=== PATIENT | male | born 1940 | race Caucasian/White ===

== ENCOUNTER 2017-02-25 08:15 | Emergency (ER) | payer MEDICARE ==
[2017-02-25 09:32] LABS: Hematocrit 42.5 % (42.0-52.0)
[2017-02-25] MEDS ORDERED: Adacel (T-DAP) 0.5 ML VIAL ONE (09:34)
[2017-02-25 09:39] LABS: Prothrombin Time 13.1 SEC (12.0-14.7)
== END 2017-02-25 09:42 | disposition home or self-care (01) ==
LOC: ERS 08:15
DX: S91.201A Unspecified open wound of right great toe with damage to nail, initial encounter (principal); I25.2 Old myocardial infarction; E78.5 Hyperlipidemia, unspecified; I10 Essential (primary) hypertension; Z79.82 Long term (current) use of aspirin; Z79.899 Other long term (current) drug therapy; W20.8XXA Other cause of strike by thrown, projected or falling object, initial encounter
CPT/HCPCS: 36415; 85014; 85018; 85610; 90471; 90715; J2997

== ENCOUNTER 2019-01-01 10:11 | Outpatient (CLI) | payer MEDICARE ==
--- NOTE | 2019-01-01 10:47 | ULT ---
BILATERAL CAROTID DUPLEX ULTRASOUND: HISTORY: TIA TECHNIQUE: Grayscale, color-flow and spectral Doppler ultrasound imaging of the extracranial carotid artery syst ems was performed bilaterally. FINDINGS: Mild plaque formation. The peak systolic velocity in the right ICA measures 68 cm/s. The peak systolic velocity in the left ICA measures 68 cm/s. Vertebral flow: antegrade, bilaterally. IMPRESSION: No hemodynamically significant stenosis of Both ICAs.
--- NOTE | 2019-01-01 12:13 | CT ---
CT OF THE BRAIN WITHOUT CONTRAST: Date: 01/01/19 COMPARISON: None. HISTORY: TIA. TECHNIQUE: Multiple contiguous axial images were obtained in a CT of the brain without contrast. FINDINGS: The brain is normal in morphology and attenuation without focal lesions or confluent areas of infarct ion. There is no evidence of hydrocephalus, intracranial hemorrhage, or extra-axial fluid collection. The calvarium and overlying soft tissues are unremarkable. The visualized paranasal sinuses and masto id air cells are well aerated. IMPRESSION: No evidence of acute intracranial abnormality. POS: CET
== END 2019-01-01 10:12 | disposition home or self-care (01) ==
LOC: CT 10:11
PROVIDERS: ATTEND Internal Medicine
DX: G45.9 Transient cerebral ischemic attack, unspecified (principal); R51 Headache; I25.10 Atherosclerotic heart disease of native coronary artery without angina pectoris; R79.89 Other specified abnormal findings of blood chemistry; E87.1 Hypo-osmolality and hyponatremia; Z79.899 Other long term (current) drug therapy
CPT/HCPCS: 70450; 80053; 85025; 86140; 93880

== ENCOUNTER 2019-06-09 08:47 | Observation (INO) | payer MEDICARE ==
[2019-06-09] MEDS ORDERED: Aspirin Chewable 81 MG TAB ONE (09:07)
--- NOTE | 2019-06-09 09:27 | RAD ---
XR Chest 1 View Portable History: Chest pain Comparison: Radiograph 2016 Findings: The lungs are clear. No pneumothorax. No effusion. Cardiac silhouette and mediastinal conto urs are within normal limits. No acute osseous abnormality. Impression: No acute intrathoracic abnormality.
[2019-06-09] MEDS ORDERED: Nitroglycerin 2% Ointment 1 INCH/1 GM Packet ONE (09:29)
[2019-06-09 09:36] LABS: #Eosinphils 0.1 thou/uL (0.0-0.7); #Lymphocytes 1.2 thou/uL (1.20-3.40); #Monocytes 0.5 thou/uL (0.11-0.59); #Neutrophils 3.4 thou/uL (1.40-6.50); %Basophils 0.7 % (0.0-1.0); %Eosinophils 1.8 % (0.0-10.0); %Lymphocytes 23.6 % (21.0-51.0); %Monocytes 9.7 % (0.0-10.0); %Neutrophils 64.2 % (42.0-75.0); Hemoglobin 14.6 g/dL (14.0-18.0); Mean Corpuscular HGB CONC 32.6 g/dL (32.0-36.0); Mean Corpuscular Hemoglobin 28.4 pg (27.0-31.0); Mean Corpuscular Volume 87.3 fL (78.0-98.0); Mean Platelet Volume 6.6 fL (7.4-10.4); Platelet Count 165 thou/uL (130-400); RBC Distribution Width 11.3 % (11.5-14.5); Red Blood Cell (RBC) Count 5.15 mill/uL (4.70-6.10); White Blood Cell (WBC) Count 5.3 thou/uL (4.8-10.8)
[2019-06-09 09:44] LABS: Prothrombin Time 12.9 SEC (12.0-14.7)
[2019-06-09] MEDS ORDERED: Nitroglycerin 0.4 MG TAB 1 EACH ONE (10:04)
[2019-06-09 10:05] LABS: ALT (SGPT) 14 U/L (8-55); AST (SGOT) 18 U/L (5-34); Albumin 4.3 g/dL (3.4-4.8); Alkaline Phosphatase 76 U/L (40-110); Anion Gap 14 mmol/L (10-20); BUN (Urea Nitrogen) 15 mg/dL (8.4-25.7); Bilirubin, Total 0.7 mg/dL (0.2-1.2); Calc. Creatinine Clearance 0 mL/min (70-130); Calcium 9.3 mg/dL (7.8-10.44); Carbon Dioxide 25 mmol/L (23-31); Chloride 100 mmol/L (98-107); Estimated GFR-MDRD 65; Globulin 2.4 g/dL (2.4-3.5); Glucose 110 mg/dL (83-110); Potassium 4.3 mmol/L (3.5-5.1); Protein, Total 6.7 g/dL (5.8-8.1); Sodium 135 mmol/L (136-145)
[2019-06-09] MEDS ORDERED: Enoxaparin Sodium 80 MG/0.8 ML SYRINGE ONE (10:30)
[2019-06-09 10:39] LABS: Bacteria/HPF None Seen HPF (None Seen); Bilirubin Negative (Negative); Blood, Urine Trace (Negative); Clarity Clear (Clear); Glucose, Urine (Dipstick) Normal (Negative); Leukocyte Negative Leu/uL (Negative); Nitrite Negative (Negative); Protein, Urine (Dipstick) Negative (Neg-Trace); RBC/HPF 0-3 HPF (0-3); Squamous Epithelial None Seen HPF (0-3); Urobilinogen Normal mg/dL (Less than 2); WBC/HPF 0-3 HPF (0-3)
[2019-06-09] MEDS ORDERED: Enoxaparin Sodium 80 MG/0.8 ML SYRINGE SC SCH ×2 (10:45→21:00)
[2019-06-09] MEDS ORDERED: Losartan 25 MG TAB PO SCH (10:45)
[2019-06-09] MEDS ORDERED: Nitroglycerin 0.4 MG TAB (25 Tab Bottle) PO PRN (12:36)
[2019-06-09] MEDS ORDERED: Acetaminophen 325 MG TAB PO PRN (12:36)
[2019-06-09 13:58] LABS: Troponin I 0.019 ng/mL (< 0.028)
[2019-06-09] MEDS ORDERED: Morphine 2 MG/ML SYRINGE SLOW IVP PRN (14:44)
[2019-06-09] MEDS ORDERED: Metoprolol Tartrate 5 MG/5 ML VIAL IVP SCH (14:45)
[2019-06-09] MEDS ORDERED: Communication Order-Pharmacy FS SCH ×2 (15:15→18:30)
--- NOTE | 2019-06-09 15:22 | HP ---
PRIMARY CARE PHYSICIAN: Dr. Lorenza Woods. CHIEF COMPLAINT: Chest pain. 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 He had a 5-vessel bypass surgery back in 2016. He says he was doing well until this morning. He says he normally takes a walk every morning and when he was about nursing home through his walk, he started noticing some pain in his chest. He felt it was like a pressure. He says it was unmistakable like the pain that he has had before. He also noted an irregular heartbeat as well. As a result of his symptoms, he came back home. He called his and she brought him to the emergency room for evaluation. Other than having some palpitations during this episode, he did not have any shortness of breath. He denies any nausea, vomiting, or other associated symptoms. He denies any dizziness or feeling lightheaded. The pain continued until he came to the ER. He was given sublingual nitroglycerin. A nitroglycerin paste was placed and he was given Lovenox and now he is chest pain free. Other than the symptoms mentioned above, there are no other complaints. REVIEW OF SYSTEMS: All systems were reviewed and are negative except for that mentioned in the history of present illness. PAST MEDICAL HISTORY: Significant for hypertension, coronary artery disease, hyperlipidemia. He had a GI bleed many years ago, which was related to NSAID use. He also has a history of intolerance to statins. PAST SURGICAL HISTORY: He has had a coronary stent to the right coronary artery. He has had 5 vessel coronary artery bypass grafting in [address] Rodriguez. He has had appendectomy, lumbar surgery. ALLERGIES: TO STATINS, WHICH CAUSE SEVERE CRAMPING. SOCIAL HISTORY: He is . He is a nonsmoker and nondrinker. He would like to be a full code. FAMILY HISTORY: Significant for coronary artery disease. CURRENT MEDICATIONS: Include 1. Losartan 100 mg daily. 2. Aspirin 81 mg a day. PHYSICAL EXAMINATION: GENERAL: He is alert and oriented. He appears to be in no acute distress. He is well developed and well nourished. VITAL SIGNS: Blood pressure most recent 165/95, heart rate 70, respiratory rate of 18, temperature is 98.6. HEENT: Pupils are equal, round, and reactive. Extraocular muscles are intact. Sclerae are anicteric. Throat, no erythema, no exudates. NECK: No adenopathy, no bruits. LUNGS: Clear to auscultation. There is no wheezing, no rales, no rhonchi. CARDIOVASCULAR: He has a normal S1 and S2. There is no S3 or S4. No murmurs, clicks or rubs. ABDOMEN: Soft. It is nontender, nondistended, positive for bowel sounds. There is no rebound, no guarding, no organomegaly. EXTREMITIES: There is no clubbing or cyanosis. No edema. No calf tenderness. NEUROLOGIC: Cranial nerves 2 through 12 are grossly intact. His muscle strength is 5/5 in both his upper and lower extremities. SKIN AND INTEGUMENT: No skin changes, no rash. LABORATORY DATA: CBC, white blood cell count 5.3, hemoglobin 14.6, hematocrit is 44.9, and platelet count is 165. INR is 1.0. His sodium is 135, potassium 4.3, chloride is 100, CO2 is 25, BUN of 15, creatinine 1.1, glucose is 110. Urinalysis is significant for trace blood. On his EKG, it is sinus rhythm. The rate was around 70. He had some T-wave inversions in V1 and V2, as well as T-wave inversions also in I and aVL. This is by my reading. Chest x-ray was essentially negative. Normal heart size. No infiltrates or effusions, also by my reading. 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 His says he was swimming when it had occurred. Since he has been symptom free up until just this morning, we will consider this unstable angina and Cardiology has already been consulted. He will be admitted to telemetry. Started on aspirin, nitrites, and Lovenox. We will defer beta-blockers to Cardiology as the patient stated he would want us to wait and talk to Dr. Pardo before starting any type of additional medications. Currently, his blood pressure is elevated. I suspect that this should trend down in the next few hours or so. We will have p.r.n. medications as needed and further recommendations will be as per Cardiology. Job ID: [id number]
[2019-06-09 16:13] LABS: Troponin I 0.017 ng/mL (< 0.028)
--- NOTE | 2019-06-09 19:05 | CON ---
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 He had myocardial infarction in 2009 and underwent stent placement in the proximal right coronary artery. In July 2015, he had recurrence of chest pressure with exertion. He underwent Cardiolite testing in the office. There was no evidence of ischemia, but he had shortness of breath and severe EKG changes and chest pressure, it was felt that he may have had balanced ischemia. Cardiac catheterization was scheduled, however, he had chest pressure and came to the emergency room prior to scheduled cardiac catheterization. He was admitted and underwent catheterization. Left ventriculogram revealed ejection fraction of 55%. There was a 50% proximal LAD with a mid LAD myocardial bridge. The circumflex was calcified with 70% lesion. The stent in the right coronary artery was patent. However, he had an 80% mid RCA lesion and a 60% right posterolateral lesion. He then underwent CABG on August 21, [address] Rodriguez. Five grafts were placed-MATIAS to the LAD, saphenous vein graft to the diagonal branch, to right posterior descending and right posterior lateral and a radial artery to the obtuse marginal. Postoperatively, he had atrial fibrillation, was treated with intravenous amiodarone and converted to sinus rhythm. He was discharged on amiodarone and eventually that was discontinued. He last saw Dr. Pardo in the office in January 2018. He had statin intolerance and was placed on Livalo 2 mg Friday, Friday, Friday, and Zetia 10 mg daily. He states that he had muscle pain also with Livalo and stopped taking that. He states he has been doing well without any chest discomfort until this morning when he went on his usual walk. After 10 minutes, he began to have pressure on the left side of his chest, but denied any nausea, vomiting, diaphoresis, or shortness of breath. He came to the emergency room and did not have any significant EKG changes. He was treated with 324 mg chewable aspirin, 1 inch of nitroglycerin paste, sublingual nitroglycerin x1, Lovenox 70 mg. His pain then seemed to resolve. It is of note that his blood pressure on admission was 190/80. He has been transferred to the floor. Blood pressure on arrival here was 171/ 95. He states that he still has very mild chest discomfort. PAST MEDICAL HISTORY: Hypertension, hypercholesterolemia with intolerance of statins. No history of diabetes. PAST SURGICAL HISTORY: Coronary artery stent placement and CABG x5. MEDICATIONS: 1. Aspirin 81 daily. 2. Losartan 100 mg daily. ALLERGIES: MUSCLE PAIN WITH STATINS. SOCIAL HISTORY: He does not smoke or drink. REVIEW OF SYSTEMS: Unremarkable. PHYSICAL EXAMINATION: VITAL SIGNS: Blood pressure 171/95, pulse 76. HEENT: PERRL. NECK: Supple. CHEST: Clear. CARDIAC: S1 and S2 normal without any S3, S4, or murmurs. Carotid upstrokes normal without bruits. Dorsalis pedis and posterior tibial pulses are normal. ABDOMEN: Normal bowel sounds without tenderness or organomegaly. EXTREMITIES: Revealed no clubbing, cyanosis, or edema. NEUROLOGIC: Grossly intact. SKIN: Warm and dry. LABORATORY DATA: EKG reveals normal sinus rhythm with poor R-wave progression. He also has somewhat of an inverted T-wave in lead aVL and lead I, which is new from the last EKG that I have from August of 2016 in the office. CBC is unremarkable. INR 1.0. Sodium 135, potassium 4.3, chloride 100, carbon dioxide 25, BUN 15, creatinine 1.10. Cardiac enzymes were negative x2. IMPRESSION: 1. Acute coronary syndrome with pain starting on his usual walk. His pain has dramatically improved, but still has some mild discomfort. 2. Status post coronary artery bypass grafting x5 in 2016. 3. History of myocardial infarction with stent placed in the right coronary artery in 2009. 4. Hypertension. 5. Hypercholesterolemia untreated with intolerance to statins. 6. History of hyponatremia in the past. PLAN: With his current blood pressure, he will be given Lopressor 5 mg IV and low-dose morphine. EKG will be repeated. We discussed that he ultimately will need to undergo repeat catheterization to assess graft patency. Job ID: [id number] [facility]
--- NOTE | 2019-06-09 19:13 | PRG ---
DATE OF SERVICE: 06/09/2019 SUBJECTIVE: Mr. Nielsen as mentioned in the previous notes, came to the hospital with prolonged episode of angina, requiring nitroglycerin and associated with ventricular bigeminy. He is resting comfortably now, severe episode of angina. OBJECTIVE: VITAL SIGNS: Blood pressure 130/80, pulse 76. LUNGS: Clear. CARDIAC: Normal S1, normal S2. EXTREMITIES: Good peripheral pulses. LABORATORY DATA: Troponin level 0.019. ASSESSMENT: Unstable angina. PLAN: Discussed risk of catheterization, stroke, heart attack, iodine allergy, interference of blood supply to leg or kidney, stent thrombosis, stent restenosis. He understands and wished to proceed. Job ID: [id number]
[2019-06-09] MEDS: Metoprolol Tartrate 25 MG TAB PO SCH (20:25)
[2019-06-09] MEDS: Nitroglycerin 2% Ointment 1 INCH/1 GM Packet TOP SCH (20:26)
[2019-06-09] MEDS ORDERED: Melatonin 3 MG TAB PO SCH (23:00)
[2019-06-10] MEDS: Nitroglycerin 2% Ointment 1 INCH/1 GM Packet TOP SCH ×2 (03:27→10:53)
[2019-06-10 05:17] LABS: #Basophils 0.1 thou/uL (0.0-0.2); #Eosinphils 0.2 thou/uL (0.0-0.7); #Lymphocytes 1.8 thou/uL (1.20-3.40); #Monocytes 0.6 thou/uL (0.11-0.59); #Neutrophils 3.7 thou/uL (1.40-6.50); %Basophils 1.4 % (0.0-1.0); %Eosinophils 2.4 % (0.0-10.0); %Lymphocytes 28.3 % (21.0-51.0); %Monocytes 9.9 % (0.0-10.0); %Neutrophils 58.1 % (42.0-75.0); Hemoglobin 13.4 g/dL (14.0-18.0); Mean Corpuscular Hemoglobin 28.6 pg (27.0-31.0); Mean Corpuscular Volume 86.6 fL (78.0-98.0); Mean Platelet Volume 6.7 fL (7.4-10.4); Platelet Count 158 thou/uL (130-400); RBC Distribution Width 11.3 % (11.5-14.5); Red Blood Cell (RBC) Count 4.68 mill/uL (4.70-6.10); White Blood Cell (WBC) Count 6.3 thou/uL (4.8-10.8)
[2019-06-10 05:40] LABS: Anion Gap 11 mmol/L (10-20); BUN (Urea Nitrogen) 11 mg/dL (8.4-25.7); Calc. Creatinine Clearance 62 mL/min (70-130); Calcium 9.1 mg/dL (7.8-10.44); Carbon Dioxide 26 mmol/L (23-31); Cardiac Risk 2.8 (Less than 4.5); Chloride 103 mmol/L (98-107); Cholesterol 210 mg/dl (< 200 Desired); Estimated GFR-MDRD 71; Glucose 91 mg/dL (83-110); HDL Cholesterol 76 mg/dL (>60 Neg Risk); LDL Cholesterol, Calculated 118 mg/dL; Potassium 4.2 mmol/L (3.5-5.1); Sodium 136 mmol/L (136-145); Triglycerides 78 mg/dL (Less than 150)
[2019-06-10] MEDS ORDERED: Sodium Chloride 0.9% 1,000 ML IV SCH (06:00)
[2019-06-10] MEDS: Metoprolol Tartrate 25 MG TAB PO SCH (06:02)
[2019-06-10] MEDS ORDERED: Lidocaine 1% (PF) 30 ML VIAL ONE (06:43)
[2019-06-10 07:59] VITALS: BP 157/77; TEMP 97.7
[2019-06-10] MEDS ORDERED: Diazepam 5 MG TAB PO SCH (08:00)
[2019-06-10] MEDS ORDERED: Aspirin 325 mg Enteric Coated Tablet PO SCH (09:00)
[2019-06-10] MEDS ORDERED: Iopamidol 370 76% 100 ML VIAL ONE (09:39)
[2019-06-10] MEDS ORDERED: Sodium Chloride 0.9% 200 ML IV PRN (12:16)
[2019-06-10] MEDS ORDERED: Acetaminophen/Codeine 30-300mg Tablet PO PRN ×2 (12:16)
[2019-06-10] MEDS ORDERED: Nitroglycerin 0.4 MG TAB (25 Tab Bottle) SL PRN (12:16)
[2019-06-10] MEDS ORDERED: Isosorbide Mononitrate (ER) 30 MG TAB PO SCH (13:30)
--- NOTE | 2019-06-10 13:45 | PRG ---
DATE OF SERVICE: 06/10/2019 Mr. Nielsen underwent cardiac catheterization today revealed that he has 3-vessel coronary artery disease with patent grafts. The symptoms initially were palpitations and chest discomfort, some of that was probably related to ventricular bigeminy, but he also had some angina. Although, major area of heart appeared well vascularized. It is possible some small vessels causing angina. The plan is to go home with the followin. Aspirin 81 mg a day. 2. Clopidogrel 75 mg a day for about 3 months. 3. Zetia 10 mg a day. He had been on in the past, but he had stopped. 4. Isosorbide 30 mg a day. 5. Losartan 100 mg a day. 6. Metoprolol 25 mg a day succinate. 7. As an outpatient, start Repatha twice a month. He is statin intolerant. The patient can be released home this afternoon as well as nitroglycerin if needed. Job ID: [id number]
[2019-06-10] MEDS ORDERED: Clopidogrel Bisulfate 300 MG TAB PO SCH (14:00)
--- NOTE | 2019-06-10 14:39 | PDOC.HOSPP ---
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 He does not have any complaints. - Objective Vital Signs & Weight: Vital Signs (12 hours) Temp Pulse Resp BP Pulse Ox 06/10/19 07:59 97.7 F 57 L 16 157/77 H 97 06/10/19 03:31 97.6 F 06/10/19 03:26 60 16 127/79 96 Weight Weight 158 lb 3.2 oz I&O: 06/09/19 06/10/19 06/11/19 06:59 06:59 06:59 Intake Total 960 Balance 960 Result Diagrams: 06/10/19 04:44 06/10/19 04:44 Hospitalist ROS - Medication Medications: Active Medications Generic Name Dose Route Start Last Admin Trade Name Freq PRN Reason Stop Dose Admin Clopidogrel Bisulfate 300 mg 06/10/19 14:00 06/10/19 13:33 Plavix PO 06/10/19 16:00 300 mg NOW JOBY Administration Isosorbide Mononitrate 30 mg 06/10/19 13:30 06/10/19 13:32 Imdur Er PO 06/10/19 15:30 30 mg NOW JOBY Administration - Exam Eye: PERRL, anicteric sclera Heart: RRR, no murmur, no gallops, no rubs, normal peripheral pulses Respiratory: CTAB, no wheezes, no rales, no ronchi, normal chest expansion Gastrointestinal: soft, non-tender, non-distended, normal bowel sounds Extremities: no cyanosis Hosp A/P (1) Unstable angina Status: Acute (2) HLD (hyperlipidemia) Code(s): E78.5 - HYPERLIPIDEMIA, UNSPECIFIED Status: Chronic (3) HTN (hypertension) Code(s): I10 - ESSENTIAL (PRIMARY) HYPERTENSION Status: Chronic - Plan * Unstable Angina- cardiac cath results noted * Medication changes noted by Cardiology * stable for discharge home after bed rest
--- NOTE | 2019-06-10 15:46 | DIS ---
DATE OF ADMISSION: 06/09/2019 DATE OF DISCHARGE: 06/10/2019 PRIMARY CARE PHYSICIAN: Lorenza Woods MD DISCHARGE DISPOSITION: Home. DISCHARGE DIAGNOSES: 1. Unstable angina. 2. Coronary artery disease. 3. Hypertension. 4. Dyslipidemia. DISCHARGE MEDICATIONS: Include; 1. Aspirin 81 mg daily. 2. Losartan 100 mg p.o. daily. 3. Nitrostat 0.4 sublingual p.r.n. 4. Plavix 75 mg daily. 5. Zetia 10 mg daily. 6. Imdur 30 mg daily. 7. Metoprolol succinate 25 mg a day. CODE STATUS: Full code. ALLERGIES: TO STATINS. PROCEDURES DONE DURING ADMISSION: The patient had a cardiac catheterization demonstrating three-vessel coronary artery disease. There was a patent MATIAS to the LAD, patent radial to the diagonal, patent saphenous graft to the OM, and patent saphenous graft to the RCA and the posterior lateral branch of the RCA and it is recommended that he continue with medical treatment. 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 He was placed in observation. His fingernail former was consulted. He underwent cardiac catheterization and found to have three-vessel coronary artery disease, but he had patent grafts to these areas. His medical regimen was optimized and the plan is for him to be discharged home later today after his bedrest from the procedure and to follow up with Dr. Pardo as instructed and also with Dr. Woods in approximately 1 week. Job ID: [id number]
[2019-06-10] MEDS ORDERED: Melatonin 3 MG TAB PO SCH (21:00)
[2019-06-11] MEDS ORDERED: Clopidogrel Bisulfate 75 MG TAB PO SCH (09:00)
[2019-06-11] MEDS ORDERED: Ezetimibe 10 MG TAB PO SCH (09:00)
[2019-06-11] MEDS ORDERED: Isosorbide Mononitrate (ER) 30 MG TAB PO SCH (09:00)
[2019-06-11] MEDS ORDERED: Aspirin 325 mg Enteric Coated Tablet PO SCH (09:00)
--- NOTE | 2019-06-12 16:13 | EKG ---
Test Reason : Blood Pressure : / mmHG Vent. Rate : 083 BPM Atrial Rate : 083 BPM P-R Int : 198 ms QRS Dur : 082 ms QT Int : 384 ms P-R-T Axes : 052 -03 093 degrees QTc Int : 451 ms Normal sinus rhythm Possible Left atrial enlargement Septal infarct , age undetermined T wave abnormality, consider lateral ischemia Abnormal ECG #[address] elevation/MD T wave inversion V4-V6, aVL Confirmed by DILIP RICHARDSON M.D. ([id number]), editor managing newspaper JEN GRAY ([id number]) on 06/12/2019 4:13:07 PM Referred By: Confirmed By:DILIP RICHARDSON M.D.
== END 2019-06-10 15:28 | disposition home or self-care (01) ==
LOC: ERS 08:47 → ERHOLD 10:42 → 2SW 13:16
PROVIDERS: ADMIT Internal Medicine; ATTEND Internal Medicine
PROC: 4A023N7 Measurement of Cardiac Sampling and Pressure, Left Heart, Percutaneous Approach (ICD-10-PCS; principal; 2019-06-10)
PROC: B2111ZZ Fluoroscopy of Multiple Coronary Arteries using Low Osmolar Contrast (ICD-10-PCS; 2019-06-10)
PROC: B2181ZZ Fluoroscopy of Left Internal Mammary Bypass Graft using Low Osmolar Contrast (ICD-10-PCS; 2019-06-10)
PROC: B2131ZZ Fluoroscopy of Multiple Coronary Artery Bypass Grafts using Low Osmolar Contrast (ICD-10-PCS; 2019-06-10)
DX: I25.110 Atherosclerotic heart disease of native coronary artery with unstable angina pectoris (principal); I24.9 Acute ischemic heart disease, unspecified; I10 Essential (primary) hypertension; E78.5 Hyperlipidemia, unspecified; I25.2 Old myocardial infarction; Z79.82 Long term (current) use of aspirin; Z79.899 Other long term (current) drug therapy; Z88.8 Allergy status to other drugs, medicaments and biological substances; Z95.1 Presence of aortocoronary bypass graft; Z95.5 Presence of coronary angioplasty implant and graft
CPT/HCPCS: 71045; 76942; 80048; 80053; 80061; 84484 ×2; 85025 ×2; 85610; 93005; 93459; 94760; 96361 ×2; 96372 ×2; 96374; 99285; C1769; G0378 ×3; 36415; 81003; 81015; 93010; 96360; J1644; J1650; J2001; Q9967

== ENCOUNTER 2020-05-14 11:43 | Day surgery (SDC) | payer MEDICARE ==
--- NOTE | 2020-05-14 12:23 | RAD ---
Exam:3 views left wrist HISTORY: Pain and injury. COMPARISON: None FINDINGS: Comminuted distal radius fracture with intra-articular extension and dorsal angulation. The re is associated deformity. No definite carpal bone fracture. IMPRESSION: Fracture and dislocation as detailed above.
[2020-05-14] MEDS ORDERED: Fentanyl 100 MCG/2 ML VIAL ONE ×3 (13:00→16:01)
--- NOTE | 2020-05-14 13:21 | CT ---
Exam: Head CT without contrast HISTORY: Fall. Pain. COMPARISON: 01/01/2019 FINDINGS: Hemorrhage: No intraparenchymal hemorrhage or extra-axial hematoma. Brain parenchyma: Cortical pierre-white matter differentiation is preserved. No mass effect or midline shift. Basilar cisterns are patent.Minimal chronic small vessel ischemic changes of the white matter Ventricular system: Ventricles and sulci are patent and symmetric. Calvarium: Intact. Sinuses and mastoid air cells: Adequate aeration. IMPRESSION: No intracranial post traumatic sequelae.
[2020-05-14 13:56] LABS: Anion Gap 15 mmol/L (10-20); BUN (Urea Nitrogen) 14 mg/dL (8.4-25.7); Calc. Creatinine Clearance 0 mL/min (70-130); Carbon Dioxide 21 mmol/L (23-31); Chloride 102 mmol/L (98-107); Glucose 101 mg/dL (83-110); Potassium 4.5 mmol/L (3.5-5.1); Sodium 133 mmol/L (136-145)
[2020-05-14] MEDS ORDERED: Boostrix 0.5 ML (Tdap) VIAL ONE (13:58)
[2020-05-14] MEDS ORDERED: Morphine 4 MG/ML VIAL ONE (13:58)
[2020-05-14 14:13] LABS: #Basophils 0.1 thou/uL (0.0-0.2); #Eosinphils 0.1 thou/uL (0.0-0.7); #Monocytes 0.7 thou/uL (0.11-0.59); #Neutrophils 6.2 thou/uL (1.40-6.50); %Basophils 1.1 % (0.0-1.0); %Eosinophils 0.9 % (0.0-10.0); %Lymphocytes 12.8 % (21.0-51.0); %Monocytes 8.3 % (0.0-10.0); %Neutrophils 76.9 % (42.0-75.0); Hemoglobin 14.7 g/dL (14.0-18.0); Mean Corpuscular HGB CONC 32.3 g/dL (32.0-36.0); Mean Corpuscular Hemoglobin 28.4 pg (27.0-31.0); Mean Platelet Volume 8.3 fL (7.4-10.4); PTT 27.9 sec (22.9-36.1); Platelet Count 180 thou/uL (130-400); Prothrombin Time 13.4 sec (12.0-14.7); RBC Distribution Width 11.8 % (11.5-14.5); Red Blood Cell (RBC) Count 5.19 mill/uL (4.70-6.10)
[2020-05-14 14:36] LABS: SARS-CoV-2 NAA Rapid Test Not Detected (NotDetected)
--- NOTE | 2020-05-14 15:19 | RAD ---
EXAM: CHEST ONE VIEW: History: Pre operative evaluation. Hypertension upon arrival. FINDINGS: Heart size is within normal limits. Post underlying sternotomy. No confluent pneumonia, overt edema, or pleural effusion. Evidence for healed left rib fractures. IMPRESSION: No significant acute intrathoracic disease. POS: RRE
[2020-05-14] MEDS ORDERED: XYLOCAINE 2%-EPI 1:100,000 20 ML VIAL ONE (15:40)
[2020-05-14] MEDS ORDERED: Bupivacaine PF 0.5% 30 ML VIAL ONE (15:40)
[2020-05-14] MEDS ORDERED: Midazolam HCl 2 mg/2 ml Vial ONE (16:01)
--- NOTE | 2020-05-14 18:20 | RAD ---
THREE VIEWS LEFT WRIST: Comparison: 05-14-2020 at 12:13 p.m. FINDINGS/IMPRESSION: Three limited intraoperative fluoroscopic views of the left wrist were submitted for interpretation. The patient is status post plate insert/fixation of the intraarticular comminuted distal radial fract ure with a plate and screws. There is better alignment of the radial carpal joint. POS: EAA
--- NOTE | 2020-05-14 20:11 | OP ---
DATE OF PROCEDURE: 05/14/2020 PREOPERATIVE DIAGNOSIS: Severely comminuted displaced distal radius fracture of the left wrist. POSTOPERATIVE DIAGNOSIS: Severely comminuted displaced distal radius fracture of the left wrist. PROCEDURE PERFORMED: Open reduction and internal fixation of the distal left radius fracture. ANESTHESIA: General. DESCRIPTION OF PROCEDURE: The patient was given preoperative IV antibiotics, taken to the operating room, placed in supine position. Satisfactory general anesthesia was performed. The left upper extremity was sterilely prepped and draped in usual fashion. After exsanguination, tourniquet was raised to 250 mmHg. A longitudinal incision was made on the volar aspect of the left wrist approximately 3 inches in length directly over the flexor carpi radialis tendon. The flexor carpi radialis tendon was retracted ulnarly. The rest of the soft tissue was retracted radially. Periosteal elevation was performed. The fracture of the distal radius noted to be completely displaced dorsally. Manipulation was performed. The fracture was manipulated. C-arm verified good alignment of the distal radius fractures and AP, lateral, multiple oblique views. Fracture was then internally fixed using a [employer]ynthes three-hole volar locking plate. Six 2.4 locking screws were placed distally and a 2.7 cortical screw was placed in the shaft along with two 2.4 locking screws also in the shaft. Again, this was all performed under fluoroscopic visualization. The wound was then irrigated with antibiotic solution, closed using 0 Vicryl for the fat and subcutaneous tissue, and skin was closed with 3-0 Rapide. The wound was then infiltrated with 0.5% Marcaine with epinephrine. Sterile dressing was applied. Tourniquet was released. The patient was placed in a wrist immobilizer. He was awakened, extubated, and transferred to recovery. ESTIMATED BLOOD LOSS: Minimal. COMPLICATIONS: None. TOURNIQUET TIME: 32 minutes. Job ID: [id number]
== END 2020-05-14 18:20 | disposition home or self-care (01) ==
LOC: ERS 11:43 → SDC 14:43
PROVIDERS: ATTEND Surgery
PROC: 0PSJ04Z Reposition Left Radius with Internal Fixation Device, Open Approach (ICD-10-PCS; principal; 2020-05-14)
DX: S52.572A Other intraarticular fracture of lower end of left radius, initial encounter for closed fracture (principal); I25.2 Old myocardial infarction; I10 Essential (primary) hypertension; E78.5 Hyperlipidemia, unspecified; Z79.82 Long term (current) use of aspirin; Z79.899 Other long term (current) drug therapy; Z88.8 Allergy status to other drugs, medicaments and biological substances; Z95.1 Presence of aortocoronary bypass graft; Z95.5 Presence of coronary angioplasty implant and graft; Z20.822 Contact with and (suspected) exposure to COVID-19; W00.0XXA Fall on same level due to ice and snow, initial encounter
CPT/HCPCS: 0240U; 25608; 70450; 71045; 73110; 76000; 80048; 85025; 85610; 85730; 90715; C1713 ×2; 36415; 90471; 96374; 96375; J0690; J2250; J2270; J3010; S0020

== ENCOUNTER 2020-06-05 08:45 | Emergency (ER) | payer MEDICARE ==
[2020-06-05] MEDS ORDERED: Nitroglycerin 2% Ointment 1 INCH/1 GM Packet ONE (09:11)
[2020-06-05] MEDS ORDERED: Aspirin 325 MG TAB ONE (09:11)
[2020-06-05] MEDS ORDERED: Aspirin Chewable 81 MG TAB ONE (09:13)
[2020-06-05 09:18] LABS: #Lymphocytes 1.2 thou/uL (1.20-3.40); #Monocytes 0.6 thou/uL (0.11-0.59); #Neutrophils 4.2 thou/uL (1.40-6.50); %Basophils 0.8 % (0.0-1.0); %Eosinophils 0.6 % (0.0-10.0); %Lymphocytes 19.8 % (21.0-51.0); %Monocytes 9.8 % (0.0-10.0); Hemoglobin 13.9 g/dL (14.0-18.0); Mean Corpuscular Volume 87.5 fL (78.0-98.0); Mean Platelet Volume 6.3 fL (7.4-10.4); Platelet Count 225 thou/uL (130-400); RBC Distribution Width 11.7 % (11.5-14.5); Red Blood Cell (RBC) Count 4.94 mill/uL (4.70-6.10); White Blood Cell (WBC) Count 6.1 thou/uL (4.8-10.8)
[2020-06-05 09:47] LABS: ALT (SGPT) 12 U/L (8-55); AST (SGOT) 18 U/L (5-34); Albumin 4.2 g/dL (3.4-4.8); Alkaline Phosphatase 108 U/L (40-110); Anion Gap 14 mmol/L (10-20); BUN (Urea Nitrogen) 13 mg/dL (8.4-25.7); Bilirubin, Total 0.9 mg/dL (0.2-1.2); Calc. Creatinine Clearance 0 mL/min (70-130); Calcium 9.1 mg/dL (7.8-10.44); Carbon Dioxide 23 mmol/L (23-31); Chloride 95 mmol/L (98-107); Globulin 2.8 g/dL (2.4-3.5); Glucose 127 mg/dL (83-110); Lipase 48 U/L (8-78); Potassium 3.9 mmol/L (3.5-5.1); Sodium 128 mmol/L (136-145)
[2020-06-05] MEDS ORDERED: Iopamidol-370 76% 500 ML 1 ML ONE (11:06)
[2020-06-05 13:34] LABS: Troponin I 0.017 ng/mL (< 0.028)
== END 2020-06-05 14:33 | disposition home or self-care (01) ==
LOC: ERS 08:45
DX: I20.8 Other forms of angina pectoris (principal); I25.2 Old myocardial infarction; E78.5 Hyperlipidemia, unspecified; I10 Essential (primary) hypertension; Z79.899 Other long term (current) drug therapy
CPT/HCPCS: 36415; 71045; 71275; 80053; 83690; 84484; 85025; 85379; 93005; Q9967